=== PATIENT | female | born 1965 | race Caucasian/White ===

== ENCOUNTER → 2023-04-21 09:23 | Outpatient (REF) | payer OTHER, SELFPAY | LOC: HWRAD 09:23 | PROVIDERS: ATTENDING PHYSICIAN Internal Medicine Rheumatology; FAMILY PHYSICIAN Nurse Practitioner Adult Health | DX: M81.0 Age-related osteoporosis without current pathological fracture (principal); Z13.820 Encounter for screening for osteoporosis | CPT/HCPCS: 77080 ==

== ENCOUNTER → 2023-06-14 07:20 | Outpatient (REF) | payer OTHER, SELFPAY | LOC: MRI 07:20 | PROVIDERS: ATTENDING PHYSICIAN Internal Medicine Rheumatology; FAMILY PHYSICIAN Family Medicine | DX: M54.42 Lumbago with sciatica, left side (principal) | CPT/HCPCS: 72148 ==

== ENCOUNTER → 2023-10-22 07:53 | Outpatient (REF) | payer OTHER, SELFPAY | LOC: RAD 07:53 | PROVIDERS: ATTENDING PHYSICIAN Internal Medicine Rheumatology; FAMILY PHYSICIAN Nurse Practitioner Adult Health | DX: M54.2 Cervicalgia (principal) | CPT/HCPCS: 72050 ==

== ENCOUNTER → 2024-06-29 08:23 | Outpatient (REF) | payer OTHER, SELFPAY | LOC: HWRAD 08:23 | PROVIDERS: ATTENDING PHYSICIAN Podiatrist Foot & Ankle Surgery; FAMILY PHYSICIAN Nurse Practitioner Adult Health; REFERRING PHYSICIAN Internal Medicine Rheumatology | DX: M25.572 Pain in left ankle and joints of left foot (principal); M06.89 Other specified rheumatoid arthritis, multiple sites | CPT/HCPCS: 73610 ==

== ENCOUNTER → 2024-09-23 14:31 | Outpatient (REF) | payer OTHER, SELFPAY | LOC: MRI 3T 14:31 | PROVIDERS: ATTENDING PHYSICIAN Podiatrist Foot & Ankle Surgery; FAMILY PHYSICIAN Nurse Practitioner Adult Health | DX: D18.01 Hemangioma of skin and subcutaneous tissue (principal); M25.572 Pain in left ankle and joints of left foot | CPT/HCPCS: 73720; A9575 ==